=== PATIENT | female | born 1980 | race Caucasian/White ===

== ENCOUNTER 2018-01-13 10:07 | Emergency (ER) | payer MEDICARE, OTHER ==
[2018-01-13 10:25] VITALS: BP 120/69
--- NOTE | 2018-01-13 10:40 | ED ---
GI/ HPI - HPI Summary HPI Summary: 37-year-old transgender presents with dysuria hematuria today. He admits to urgency. He denies any history of this. No history of kidney stones or UTIs. This has never happened before. No flank pain. No fevers. No nausea no vomiting. No abdominal pain. Has chronic low back pain that is unchanged. He is not on blood thinners. - History of Current Complaint Chief Complaint: [facility] Time Seen by Provider: 01/13/18 10:17 Stated Complaint: URINARY COMPLAINT Hx Last Menstrual Period: does not menstruate Pain Intensity: 0 - Allergy/Home Medications Allergies/Adverse Reactions: Allergies Allergy/AdvReac Type Severity Reaction Status Date / Time Environmental Allergies Allergy Eyes Uncoded 01/13/18 10:18 Itchy/Swollen/Red/Watery Home Medications: Home Medications Allopurinol 100 mg PO DAILY 01/13/18 [History Confirmed 01/13/18] Metoprolol Succinate [Metoprolol Succinate ER] 25 mg PO DAILY 01/13/18 [History Confirmed 01/13/18] PMH/Surg Hx/FS Hx/Imm Hx Endocrine/Hematology History: Denies: Hx Anticoagulant Therapy, Hx Diabetes, Hx Thyroid Disease Cardiovascular History: Reports: Other Cardiovascular Problems/Disorders - past hx tachycardia Denies: Hx Congestive Heart Failure, Hx Hypertension, Hx Pacemaker/ICD Respiratory History: Reports: Hx Seasonal Allergies, Hx Sleep Apnea - evaluation for 10/2013, Other Respiratory Problems/Disorders - allergic rhinitis Denies: Hx Asthma, Hx Chronic Obstructive Pulmonary Disease (COPD) GI History: Reports: Hx Gastroesophageal Reflux Disease - esophageal Denies: Hx Ulcer History: Denies: Hx Renal Disease Musculoskeletal History: Reports: Other Musculoskeletal History - hx plantar faciitis Sensory History: Reports: Hx Contacts or Glasses Denies: Hx Eye Injury, Hx Hearing Aid Opthamlomology History: Reports: Hx Contacts or Glasses Denies: Hx Eye Injury Neurological History: Reports: Other Neuro Impairments/Disorders - mood disorder , bipolar personality disorder, alcohol dependency, bullemia Psychiatric History: Reports: Hx Anxiety, Hx Attention Deficit Hyperactivity Disorder, Hx Eating Disorder - phases of yo yo weight,, Hx Depression, Hx Post Traumatic Stress Disorder, Hx Inpatient Treatment, Hx Community Mental Health Tx , Hx Bipolar Disorder, Hx Suicide Attempt, Hx Substance Abuse - etoh; marijuana , Other Psychiatric Issues/Disorders - dissociative disorder, ETOH hx Denies: Hx Panic Disorder, Hx Schizophrenia, Hx of Violent Episodes Against Others - Surgical History Surgery Procedure, Year, and Place: Left Knee Surgery in 2005, Colycystectomy May 2013,. TBI x2 May 2013, Hx Anesthesia Reactions: No Infectious Disease History: No Infectious Disease History: Denies: Hx Clostridium Difficile, Hx Hepatitis, Hx Human Immunodeficiency Virus (HIV), Hx Shingles, Hx Tuberculosis, Traveled Outside the [place] in Last 30 Days - Family History Known Family History: Negative: Renal Disease - Social History Alcohol Use: None Substance Use Type: Reports: None Substance Use Comment - Amount & Last Used: ketamine, MXE Smoking Status (MU): Never Smoked Tobacco Type: Cigarettes Have You Smoked in the Last Year: No Review of Systems Negative: Fever Negative: Chest Pain Negative: Shortness Of Breath Negative: Abdominal Pain, Nausea Positive: dysuria, hematuria. Negative: flank pain All Other Systems Reviewed And Are Negative: Yes Physical Exam Triage Information Reviewed: Yes Vital Signs On Initial Exam: Initial Vitals Temp Pulse Resp BP Pulse Ox 98.3 F 78 18 120/69 100 01/13/18 10:14 01/13/18 10:14 01/13/18 10:14 01/13/18 10:14 01/13/18 10:14 Vital Signs Reviewed: Yes Appearance: Positive: Well-Appearing Skin: Positive: Warm, Dry Head/Face: Positive: Normal Head/Face Inspection Eyes: Positive: Normal, Conjunctiva Clear ENT: Positive: Pharynx normal Respiratory/Lung Sounds: Positive: Clear to Auscultation, Breath Sounds Present Cardiovascular: Positive: Normal, RRR Abdomen Description: Positive: Nontender, Soft. Negative: CVA Tenderness (R), CVA Tenderness (L) Bowel Sounds: Positive: Present Musculoskeletal: Positive: Normal Neurological: Positive: Normal Psychiatric: Positive: Normal Diagnostics - Vital Signs Vital Signs Temp Pulse Resp BP Pulse Ox 01/13/18 10:14 98.3 F 78 18 120/69 100 - Laboratory Lab Results: Lab Results 01/13/18 Range/Units 10:30 POC Urine Color Yellow POC Urine Clarity Clear POC Urine pH 7.0 (5-9) POC Ur Specif Wilbur 1.010 (1.010-1.030) POC Urine Protein Negative (Negative) POC Ur Glucose (UA) Negative (Negative) POC Urine Ketones Negative (Negative) POC Urine Blood 1+ A (Negative) POC Urine Nitrite Negative (Negative) POC Urine Bilirubin Negative (Negative) POC Urine Urobilinogen 0.2 (Negative) POC U Leukocyte Esteras Trace A (Negative) Lab Statement: Any lab studies that have been ordered have been reviewed, and results considered in the medical decision making process. GIGU Course/Dx - Course Course Of Treatment: 37-year-old transgender presents with dysuria hematuria today. He denies any history of this. No history of kidney stones or UTIs. This has never happened before. No flank pain. No fevers. No nausea no vomiting. No abdominal pain. Has chronic low back pain that is unchanged. He is not on blood thinners. on exam nontender abd. neg CVA. urine shows uti. will treat with cipro. told if hematuria continues to follow up with urology. patient understand and agrees with plan. - Diagnoses Differential Diagnoses - Female: Pyelonephritis, Urinary Tract Infection, Ureteral Calculi Provider Diagnoses: Hematuria, UTI (urinary tract infection) Discharge - Sign-Out/Discharge Documenting (check all that apply): Patient Departure - Discharge Plan Condition: Good Disposition: HOME Prescriptions: Ciprofloxacin TAB* [Cipro 500 MG TAB*] 500 mg PO BID #10 tab Patient Education Materials: Urinary Tract Infection in Women (ED) Referrals: [facility] [place] [facility] [Outside] Rene Barkley MD [Medical Doctor] - Additional Instructions: Take Cipro twice a day for 5 days drink plenty of fluids Follow up with urology if blood in urine persists Est care with primary Return to ED if develop fever, flank pain, vomiting or any new or worsening symptoms Per institutional requirements, I have reviewed the chart, however, I was not consulted specifically or made aware of this patient by the above midlevel provider. I did not personally evaluate, interact with , or disposition this patient. - Billing Disposition and Condition Condition: GOOD Disposition: Home
--- NOTE | 2018-01-14 15:42 | UC ---
- Progress Note Progress Note: call patient ---stop Cipro and change to Amoxicillin 500 mg po bid for 7 days Course/Dx - Diagnoses Provider Diagnoses: Hematuria, UTI (urinary tract infection) Discharge - Sign-Out/Discharge Documenting (check all that apply): Post-Discharge Follow Up - Discharge Plan Condition: Good Disposition: HOME Prescriptions: Ciprofloxacin TAB* [Cipro 500 MG TAB*] 500 mg PO BID #10 tab Patient Education Materials: Urinary Tract Infection in Women (ED) [place] [facility] [place] [place]Outside] Rene Barkley MD [Medical Doctor] - Additional Instructions: Take Cipro twice a day for 5 days drink plenty of fluids Follow up with urology if blood in urine persists Est care with primary Return to ED if develop fever, flank pain, vomiting or any new or worsening symptoms Per institutional requirements, I have reviewed the chart, however, I was not consulted specifically or made aware of this patient by the above midlevel provider. I did not personally evaluate, interact with , or disposition this patient. - Billing Disposition and Condition Condition: GOOD Disposition: Home
== END 2018-01-13 10:45 | disposition home or self-care (01) ==
LOC: UCEAST 10:07
DX: N39.0 Urinary tract infection, site not specified (principal); R31.9 Hematuria, unspecified; G89.29 Other chronic pain; M54.5 Low back pain; Z91.09 Other allergy status, other than to drugs and biological substances
CPT/HCPCS: 81003; 87077; 87086; 99202; G0463